=== PATIENT | male | born 2000 | race African-American/Black ===

== ENCOUNTER 2024-11-13 14:48 | Emergency (ER) | payer SELFPAY ==
[2024-11-13 14:49] VITALS: BP 130/71; PULSE 88; RESP 20; TEMP 99; O2SAT 97
--- NOTE | 2024-11-13 15:42 | ED.PDOC ---
HPI Comments HPI: Vitals Temperature: Respiratory rate: SpO2: Heart rate: Blood pressure: Past Medical History: Past Surgical History: Social History: HPI: Poor Historian. 24-year-old male presents to emergency department for evaluation of right upper forehead laceration. Patient is tall. Patient was standing on a bed today and he accidentally hit the ceiling fan. No loss of consciousness, no mental status change. no other acute complaints. Past Medical History: Denies any Past Surgical History: denies any REVIEW OF SYSTEMS: CONSTITUTIONAL: Denies acute: fever, diaphoresis, chills, generalized weakness. HEAD: Denies acute: photophobia Eyes: Denies acute: Double vision, vision loss, eye pain, eye discharge. EARS: Denies acute: tinnitus, hearing loss, ear discharge, ear pain, THROAT: Denies acute: sore throat, swelling, difficulty swallowing , pain with swallowing, change in voice. NECK: Denies acute: neck pain, neck swelling, stiff neck. HEART: Denies acute : chest pain, palpitations, LUNGS: Denies acute: SOB, wheezing, cough, hemoptysis ABDOMEN: Denies acute: abdominal pain, Nausea, Vomiting, diarrhea, melena , hematemesis, hematochezia SKIN: Denies acute: rash, redness, lesions, itchiness. EXTREMITIES: Denies acute: calf pain, numbness, tingling, weakness, denies pain in extremity. Denies acute: Low back pain. Neuro: Denies acute: focal neurological deficit, motor or sensory focal neurological deficit, tremors, seizure like activity, confusion, dizziness, change in mental status, loss of bowel or bladder function, cauda equina like symptoms. : Denies acute: dysuria, hematuria, flank pain, increase in urinary frequency. PSYCH: Denies acute: hallucination, suicidal ideation, homicidal ideation. PHYSICAL EXAM: General: -----Mild---acute distress, awake and alert. Head: normocephalic, atraumatic. noted right forehead below the hairline 2 cm laceration. Bleeding is controlled. Does not appear contaminated. Neck: supple, trachea is midline, no swelling. Throat: Normal phonation. Eyes:, no erythema, no purulent discharge, no proptosis, no icterus. Heart: regular rate, regular rhythm, no significant murmur appreciated. Lungs: no apparent respiratory distress, Able to speak in full sentences. No wheezing, no rhonchi, no crackles. No stridors Clear to auscultation bilaterally. Abdomen: non tender to palpation, non distended, soft, no guarding, no rebound, + bowel sounds. Neuro: Awake, Alert, oriented to name, self, situation, follows commands GCS=15. Speech is normal. Skin: no petechia, no purpura, no cyanosis, non-pale, not jaundice. Lower extremities: --no - Pitting edema no deformity, no focal swelling, no calf TTP. Makes eye contact. moves all four extremities. Face: no apparent facial droop. Ambulating in the ED independently. PERRLA, EOM-I CN 2-12 are grossly intact, No nystagmus. No nuchal rigidity, Kernig's sign, Brudzinski's sign, no meningeal signs. ED COURSE: Chief Complaint: Laceration Time Seen by MD: 15:37 Reviewed Notes: Nurses Notes, Allergies Allergies: Coded Allergies: NO KNOWN ALLERGIES (Unverified , 10/13/09) Information Source: Patient Mode of Arrival: Carried Complexity: Simple Laceration Length (cm): 2 Past Medical History PAST MEDICAL HISTORY: Denies Surgical History: Denies all surgeries Social History Lives In: Home Was a procedure done? Was a procedure done?: Yes Sedation Sedation?: No Laceration Repair : Location RT forehead Length 2 cm Anesthetic: Lidocaine, With epi Laceration Repair Prep: Saline, Betadine, by Irrigation Laceration Repair Wound Comple: epidermis/dermis repair Laceration Repair: Number of sutures (3), Size (ethilon 3.0) Informed consent obtained: Yes Risks, benefits, and alternati: Yes Differential diagnosis Generic Laceration: Hematoma, Fracture, Retained Foriegn Body, Neurovascular Injury, Tendon Injury, Abrasion/Contusion, Laceration, Avulsion Differential Diagnosis: Closed Head Injury, Skull Fracture X-Ray, Labs, Meds, VS Vital Signs Date Time Temp Pulse Resp B/P (MAP) Pulse Ox O2 Delivery O2 Flow Rate FiO2 11/13/24 14:49 99.0 88 20 130/71 (90) 97 99.0 Time of 1ST Reevaluation: 00:00 Reevaluation 1ST: Improved Patient Education/Counseling: Diagnosis, Treatment Family Education/Counseling: Diagnosis, Treatment Comments Patient presented with the above HPI.--- Head injury---workup was initiated. patient was found with the above mentioned diagnosis. the following medications were ordered: please refer to order lists of meds and tests obtained by myself Dr. Mae. Patient ED course and VS have been stabilized. Patient has been reassessed in the ED and remained in a stable condition. Pertinent incidental findings were discussed with the patient and/or family. Patient/family voices understanding and is agreeable with plan. Patient has been observed in the ED adequate length of time to insure improvement/stability. Escalation of care considered: Consideration of escalation to observation or admission I discussed in length CT scan imaging of the head with the mother and the patient. At this time they declined any CT scan imaging. Patient was DISCHARGED home in a stable condition. All the reports of any imaging studies that were ordered by myself were reviewed by myself. Departure 1 Departure Time of Disposition: 15:39 Impression: Primary Impression: Forehead laceration Additional Impression: Closed head injury Disposition: 01 HOME / SELF CARE / HOMELESS Condition: Stable Additional Instructions: Additional instructions: You MUST follow-up with your primary care/family doctor in 1 to 2 days. If you are unable to see your primary care/family doctor, please return to our emergency room for re-assessment and re-evaluation in 1 to 2 days. Return to the emergency room here in our facility or to the nearest ER [facility] if your symptoms change or worsen. CONSULTATIONS: you MUST Follow-up for consultation as soon as possible with: -Plastic surgeon in 1-2 days. Please call for appointment. You MUST call the consultants office yourself to make an appointment. You may need to arrange that through your insurance and/or your primary/family doctor. If you are unable to see the internal control consultant in 1 to 2 days, you must return to our emergency room (or any other ER of your choice) for re-assessment and re- evaluation. Adequate fluid hydration. Suture removal in 5-7 days. Avoid the sun to minimize scarring. Apply [id number] triple ointment as needed. Do not submerge The wound in the next 48 hours. Discharged With: Self, Relative (Mother) Critical Care Note Critical Care Time?: No I personally scribed for BERNA MAE DO ([email or web address]) on 11/13/24 at 15:57. Electronically submitted by Sommer Larios ([email or web address]). BERNA MAE DO November 13, 2024 15:42
[2024-11-13] MEDS: LIDOCAINE W/ EPINEPHRINE 1% 20ML VIAL ONE (15:54)
== END 2024-11-13 16:31 | disposition home or self-care (01) ==
LOC: ER 14:52
DX: S01.81XA Laceration without foreign body of other part of head, initial encounter (principal); S09.8XXA Other specified injuries of head, initial encounter; W22.03XA Walked into furniture, initial encounter; Y93.89 Activity, other specified; Y92.89 Other specified places as the place of occurrence of the external cause; Y99.8 Other external cause status
CPT/HCPCS: 12011